=== PATIENT | female | born 2000 | race African-American/Black ===

== ENCOUNTER 2022-03-06 18:49 | Emergency (ER) | payer OTHER ==
--- NOTE | 2022-03-06 21:15 | Diagnostic Imaging Report ---
INDICATION: Dyspnea EXAM: PA and lateral views of the chest are obtained. COMPARISON: No previous study is available for comparison at this time. FINDINGS: Heart size and pulmonary vasculature are within normal limits, and the lungs are clear, bilaterally. IMPRESSION: Unremarkable chest. Dictated by: Dictated on workstation # [id number]
[2022-03-06] MEDS ORDERED: BENZ100C18 PO (21:29)
--- NOTE | 2022-03-06 21:30 | ED Cough/URI ---
General Chief Complaint: Cough/Cold/Flu Symptoms Stated Complaint: +STREP, CHEST HEAVINESS, HURTS TO BREATH Nursing Triage Note: TO ED VIA POV AND AMBULATORY TO TRIAGE WITH C/O SORE THROAT AND PERSISTANT COUGH AND FEELS SOA. SORE THROAT STARTED LAST SUNDAY AND WAS SEEN AT [facility] AND GIVEN "PCN SHOT" AFTER POSTIVE STREP TEST. COVID AND FLU WERE NEGATIVE. TOOK 50MG PO BENADRYL, TYLENOL COLD AND FLU, AND MUCINEX AT 1400 TODAY. HAS INHALER BUT CANNOT FIND IT TO USE. Source: patient, family Exam Limitations: no limitations (WESLEY CALDERÓN APRN) History of Present Illness Date Seen by Provider: Mar 06, 2022 Time Seen by Provider: 20:20 Initial Comments Patient is a previously healthy 21-year-old female who presents to the emergency department with 2 to 3 days of sore throat, cough, and mild nasal congestion. She was seen at an urgent care clinic earlier today where she was diagnosed with strep pharyngitis. COVID and flu were negative at that time. Patient was given an IM injection of Bicillin. She went home and woke up later with subjective shortness of air and burning in her chest. This prompted mother to bring her to the emergency department for further evaluation. Patient has not had a fever today. She has had vylg-zev-bpzwpgn multisymptom cold and flu medications with no improvement in her symptoms. She denies any history of pulmonary disease. She states she does not smoke. (WESLEY CALDERÓN APRN) Allergies and Home Medications Allergies Coded Allergies: sulfamethoxazole (Verified Allergy, Unknown, 03/06/22) trimethoprim (Verified Allergy, Unknown, 03/06/22) Patient Home Medication List Home Medication List Reviewed: Yes (WESLEY CALDERÓN APRN) Benzonatate (Tessalon Perles) 100 Mg Capsule, 100 MG PO Q8H PRN for COUGH Prescribed by: Wesley Calderón on 03/06/222128 Review of Systems Review of Systems Constitutional: no symptoms reported EENTM: see HPI Respiratory: see HPI Cardiovascular: no symptoms reported Gastrointestinal: no symptoms reported Skin: no symptoms reported (WESLEY CALDERÓN APRN) Past Swkpxdc-Pykzyl-Aeeoom Hx Patient Social History Tobacco Use?: Yes Smoking Status: Current Everyday Smoker Use of E-Cig and/or Vaping dev: Yes E-Cig or Vaping type used: Nicotine Substance use?: Yes Substance type: Marijuana Alcohol Use?: Yes (WESLEY CALDERÓN APRN) Immunizations Up To Date Influenza Vaccine Up-to-Date: No; Not Current COVID19 Vaccine 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 oz. 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, no motor/sensory deficits, alert, normal mood/affect, oriented x 3 Skin: normal color, warm/dry Lymphatic: no adenopathy (WESLEY CALDERÓN APRN) Progress/Results/Core Measures Suspected Sepsis SIRS Temperature: Pulse: 72 Respiratory Rate: 16 Blood Pressure 154 /100 Mean: 118 (WESLEY CALDERÓN SUPERVISOR REFINING) Results/Orders Vital Signs/I&O 03/06/22 03/06/22 03/06/22 20:16 20:16 21:56 Temp 37.1 37.1 Pulse 72 69 Resp 16 16 B/P (MAP) 154/100 (118) 138/98 Pulse Ox 100 100 O2 Delivery Room Air Room Air Room Air (LACI,WILLA K DO) Vital Signs/I&O Capillary Refill : Less Than 3 Seconds (WESLEY CALDERÓN SUPERVISOR REFINING) Blood Pressure Mean: 118 Progress Note : Progress Note Patient is nontoxic and well-hydrated on exam. Vital signs are reassuring. There is no hypoxia or tachypnea noted. Patient does not have any oropharyngeal erythema. No tonsillar swelling or exudate appreciated. No anterior cervical adenopathy noted. Patient is speaking in full sentences. No adventitious lung sounds noted on auscultation. Chest are obtained which is acutely negative. No obvious nidus of bacterial infection noted on exam. Viral etiology of symptoms likely. I am not entirely convinced patient has streptococcal pharyngitis given reassuring exam and concurrent URI symptoms. Either way she has been fully treated with an IM injection of Bicillin. Patient will be discharged home with a cough suppressant and instructions to follow-up with PCP. Return precautions for symptomology discussed. Patient verbalized understanding. (WESLEY CALDERÓN APRN) Departure Impression Primary Impression: Viral syndrome Disposition: 01 HOME, SELF-CARE Condition: Stable Departure-Patient Inst. Decision time for Depature: 21:25 (WESLEY CALDERÓN APRN) Referrals: [facility] [place] (PCP/Family) Primary Care Physician Patient Instructions: Viral Syndrome (DC) Scripts Benzonatate (TESSALON PERLES) 100 Mg Capsule 100 MG PO Q8H PRN for COUGH for 5 Days, #15 CAP 0 Refills Prov: WESLEY CALDERÓN APRN 03/06/22 ATTENDING PHYSICIAN NOTE: I WAS PHYSICALLY PRESENT ER PHYSICIAN, BUT I WAS NOT INVOLVED IN ANY DECISION MAKING OR ANY CARE OF THIS PATIENT, AND I AM NOT COLLABORATING PHYSICIAN. (WILLA AGUERO DO) WESLEY CALDERÓN APRN Mar 06, 2022 21:30 WILLA AGUERO DO Mar 07, 2022 02:53
[2022-03-06 21:56] VITALS: BP 138/98
== END 2022-03-06 21:58 | disposition home or self-care (01) ==
LOC: EDUNIT# 18:49 → ER 18:52
DX: B34.9 Viral infection, unspecified (principal); R05.1 Acute cough; F17.290 Nicotine dependence, other tobacco product, uncomplicated
CPT/HCPCS: 71046

== ENCOUNTER 2023-04-01 11:48 | Emergency (ER) | payer BC ==
[~2023-04-01] VITALS: Ht 167.7 cm; Wt 91.0 kg
[~2023-04-01 11:48] MED LIST: BENZ100C18 PO
[2023-04-01] MEDS ORDERED: NS IV 1000 ML 1,000 ML IV ONE (12:00)
[2023-04-01] MEDS ORDERED: NS 100 ML (IVPB) BAG IV ONE ×2 (12:30→12:45)
[2023-04-01] MEDS ORDERED: HOLD METFORMIN - RECEIVED CONTRAST 20 ML VIAL IV SCH ×2 (12:30→12:45)
[2023-04-01] MEDS ORDERED: IOHEXOL 350 MG/ML 100 ML (OMNIPAQUE 350) VIAL IV ONE ×2 (12:30→12:45)
[2023-04-01] MEDS ORDERED: fentaNYL INJECTION 100 MCG/2 ML VIAL IVP STA (12:31)
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
[2023-04-01 13:09] LABS: BASOPHILS # (AUTO) 0.1 10^3/uL (0.0-0.1); BASOPHILS % (AUTO) 1 % (0-10); EOSINOPHILS # (AUTO) 0.1 10^3/uL (0.0-0.3); EOSINOPHILS % (AUTO) 1 % (0-10); HEMATOCRIT 43 % (35-52); HEMOGLOBIN 14.4 g/dL (11.5-16.0); LYMPHOCYTES # (AUTO) 2.1 10^3/uL (1.0-4.0); LYMPHOCYTES % (AUTO) 15 % (12-44); MEAN CORPUSCULAR HEMOGLOBIN 29 pg (25-34); MEAN CORPUSCULAR HGB CONC 34 g/dL (32-36); MEAN CORPUSCULAR VOLUME 87 fL (80-99); MEAN PLATELET VOLUME 10.9 fL (9.0-12.2); MONOCYTES # (AUTO) 1.5 10^3/uL (0.0-1.0); MONOCYTES % (AUTO) 11 % (0-12); NEUTROPHILS # (AUTO) 9.9 10^3/uL (1.8-7.8); NEUTROPHILS % (AUTO) 72 % (42-75); PLATELET COUNT 329 10^3/uL (130-400); WHITE BLOOD COUNT 13.7 10^3/uL (4.3-11.0)
[2023-04-01 13:16] LABS: BACTERIA,URINE NEGATIVE /HPF; BILIRUBIN,URINE NEGATIVE (NEGATIVE); CLARITY,URINE CLEAR; COLOR,URINE YELLOW; GLUCOSE, URINE (UA) NEGATIVE (NEGATIVE); KETONES,URINE NEGATIVE (NEGATIVE); LEUKOCYTE ESTERASE ,URINE NEGATIVE (NEGATIVE); NITRITE,URINE NEGATIVE (NEGATIVE); PROTEIN,URINE NEGATIVE (NEGATIVE); SQUAMOUS EPITHELIAL CELL,UR 0-2 /HPF; WBC,URINE RARE /HPF
[2023-04-01 13:23] LABS: ALBUMIN 4.8 GM/DL (3.2-4.5); CHLORIDE 106 MMOL/L (98-107); POTASSIUM 3.5 MMOL/L (3.6-5.0); SODIUM 139 MMOL/L (135-145)
[2023-04-01 13:25] LABS: CALCIUM 9.4 MG/DL (8.5-10.1)
[2023-04-01 13:26] LABS: GLUCOSE 96 MG/DL (70-105); TOTAL PROTEIN 8.2 GM/DL (6.4-8.2)
[2023-04-01 13:27] LABS: BILIRUBIN,TOTAL 1.3 MG/DL (0.1-1.0); CARBON DIOXIDE 22 MMOL/L (21-32)
[2023-04-01 13:29] LABS: ALKALINE PHOSPHATASE 36 U/L (40-136); CREATININE SERUM 0.88 MG/DL (0.60-1.30); GFR ESTIMATED 96
[2023-04-01 13:30] LABS: BUN/CREATININE RATIO 10
[2023-04-01 13:32] LABS: ALANINE AMINOTRANSFERASE 13 U/L (0-55)
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
--- NOTE | 2023-04-01 14:33 | Diagnostic Imaging Report ---
Indication: Knee pain. Findings: ACL reconstruction has been performed. There is anatomic alignment. No fracture or acute bony pathology. There is a joint effusion suggested by the lateral film. There is anterior cortical irregularity of the patella, correlate with the focal pain at that site. Impression: Irregularity of the anterior patellar cortex of uncertain acuity, probable retropatellar joint effusion. Remote ACL reconstruction. The femur, tibia and fibula where visualized appeared nonacute. Dictated by: Dictated on workstation # [id number]
[2023-04-01] MEDS ORDERED: HYDROcodone/ACETAMINOPHEN 5 MG/325 MG TABLET PO ONE (14:45)
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
[2023-04-01] MEDS ORDERED: ACHD5005 PO (15:23)
[2023-04-01 15:35] VITALS: BP 132/71
== END 2023-04-01 15:43 | disposition home or self-care (01) ==
LOC: EDUNIT# 11:48 → ER 11:49
DX: S62.102A Fracture of unspecified carpal bone, left wrist, initial encounter for closed fracture (principal); S62.101A Fracture of unspecified carpal bone, right wrist, initial encounter for closed fracture; S80.02XA Contusion of left knee, initial encounter; V49.50XA Passenger injured in collision with unspecified motor vehicles in traffic accident, initial encounter; Y92.410 Unspecified street and highway as the place of occurrence of the external cause
CPT/HCPCS: 29105; 36415; 71260; 73562; 74177; 80053; 81000; 84703; 85025; 96361; 96374

== ENCOUNTER → 2023-04-03 | Outpatient (CLI) | payer BC ==
[~2023-04-03] MED LIST changes: +ACHD5005 PO
== END ==
LOC: ORTHO 10:54
PROVIDERS: ATTEND Orthopaedic Surgery
DX: S52.502E Unspecified fracture of the lower end of left radius, subsequent encounter for open fracture type I or II with routine healing (principal); S62.001D Unspecified fracture of navicular [scaphoid] bone of right wrist, subsequent encounter for fracture with routine healing; X58.XXXD Exposure to other specified factors, subsequent encounter
CPT/HCPCS: 99203